=== PATIENT | female | born 1995 | race Caucasian/White ===

== ENCOUNTER 2017-06-12 21:47 | Emergency (ER) | payer MEDICAID ==
[~2017-06-12] VITALS: Ht 162.6 cm; Wt 75.7 kg
[~2017-06-12 21:47] MED LIST: ESCI20TA10 PO; OMEP20CA9 PO
[2017-06-12] MEDS ORDERED: SODIUM CHLORIDE 0.9% 1,000ML IVBOLUS ONE (22:30)
[2017-06-12] MEDS ORDERED: ONDANSETRON 2MG/ML, 2ML IVPush ONE (22:30)
[2017-06-12] MEDS ORDERED: FAMOTIDINE 20 MG/2 ML IVP ONE (22:30)
[2017-06-12] MEDS ORDERED: SODIUM CHLORIDE FLUSH 10ML SYR IVF ONE (22:30)
[2017-06-12] MEDS ORDERED: MAALOX/HYOSCYAMINE/LIDOCAINE 45 ML BTL PO ONE (22:30)
[2017-06-12 22:44] LABS: HEMATOCRIT 45.1 % (34.6-47.8); HEMOGLOBIN 15.3 g/dL (11.7-16.4); WHITE BLOOD COUNT 10.7 x10^3/uL (4.5-13.2)
[2017-06-12] MEDS ORDERED: ONDANSETRON 2MG/ML, 2ML ONE (22:48)
[2017-06-12] MEDS ORDERED: FAMOTIDINE 20 MG/2 ML ONE (22:48)
[2017-06-12] MEDS ORDERED: MAALOX/HYOSCYAMINE/LIDOCAINE 45 ML BTL ONE (22:48)
[2017-06-12 22:56] LABS: ASPARTATE AMINO TRANSFERASE 11 U/L (15-37); BLOOD UREA NITROGEN 10 mg/dL (7-18)
[2017-06-12] MEDS ORDERED: ETHO250C PO (22:59)
[2017-06-12] MEDS ORDERED: OMEP10CA4 PO (23:00)
[2017-06-13 00:49] VITALS: BP 116/66
== END 2017-06-13 00:51 | disposition home or self-care (01) ==
LOC: ED 23:59
DX: N30.91 Cystitis, unspecified with hematuria (principal); K59.00 Constipation, unspecified; R11.2 Nausea with vomiting, unspecified
CPT/HCPCS: 36415; 74020; 80053; 81001; 83690; 84703; 85025; 87086; 96361; 96374; 96375; 99285; J2405; J7030; S0028

== ENCOUNTER 2018-09-29 09:47 | Emergency (ER) | payer SELFPAY ==
[~2018-09-29] VITALS: Ht 152.4 cm; Wt 74.8 kg
[~2018-09-29 09:47] MED LIST changes: +ETHO250C PO; +OMEP10CA4 PO
[2018-09-29] MEDS ORDERED: ONDANSETRON ODT 4 MG ONE (10:43)
--- NOTE | 2018-09-29 10:48 | NUR ---
PT RESTING WITH MOTHER AT THE THESE COMPLAINTS ARE MOST OFTEN A DAILY OCCURRANCE PER THE MOTHER AND IS MORE ANXIOUS THAN NORMAL PT HAS A HX OF ANXIETY AND AUTISM WITH SEIZURES AND HAS BEEN OFF MEDS FOR UNKNOWN AMOUNT OF TIME
[2018-09-29] MEDS ORDERED: ONDANSETRON ODT 4 MG PO ONE (11:00)
[2018-09-29 11:37] LABS: BASOPHILS # (AUTO) 0.03 x10^3/uL (0-0.1); BASOPHILS % (AUTO) 0 % (0-1); EOSINOPHILS # (AUTO) 0.03 x10^3/uL (0-0.4); EOSINOPHILS % (AUTO) 0 % (1-7); LYMPHOCYTES # (AUTO) 1.49 x10^3/uL (1-3.4); LYMPHOCYTES % (AUTO) 16 % (22-44); MD NO; MEAN CORPUSCULAR HEMOGLOBIN 29.2 pg (27.0-34.8); MEAN CORPUSCULAR HGB CONC 33.5 g/dL (32.4-35.8); MEAN CORPUSCULAR VOLUME 87.3 fL (80-100); MEAN PLATELET VOLUME 7.7 fL (7.4-10.4); MONOCYTES # (AUTO) 0.44 x10^3/uL (0.2-0.8); MONOCYTES % (AUTO) 5 % (2-9); NEUTROPHILS # (AUTO) 7.58 x10^3/uL (1.8-6.8); NEUTROPHILS % (AUTO) 79 % (42-75); PLATELET COUNT 343 x10^3/uL (130-400); RED BLOOD COUNT 4.89 x10^6/uL (3.82-5.3); RED CELL DISTRIBUTION WIDTH 13.9 % (9.6-15.2)
[2018-09-29 11:45] LABS: ANION GAP 7 mmol/L (5-15); CHLORIDE 111 mmol/L (98-107); CREATININE 0.68 mg/dL (0.55-1.02)
[2018-09-29 11:46] LABS: ALANINE AMINOTRANSFERASE 29 U/L (12-78); ALBUMIN 3.8 g/dL (3.4-5.0)
[2018-09-29 11:48] LABS: ALKALINE PHOSPHATASE 106 U/L (45-117); BILIRUBIN,TOTAL 0.7 mg/dL (0.2-1.0); TOTAL PROTEIN 7.6 g/dL (6.4-8.2)
[2018-09-29 12:20] VITALS: BP 94/59
== END 2018-09-29 13:13 | disposition home or self-care (01) ==
LOC: ED 10:51
DX: R11.2 Nausea with vomiting, unspecified (principal); R19.7 Diarrhea, unspecified; R53.1 Weakness; F32.9 Major depressive disorder, single episode, unspecified; Z87.440 Personal history of urinary (tract) infections
CPT/HCPCS: 36415; 80053; 85025; 99283; Q0162

== ENCOUNTER 2019-11-25 13:15 | Emergency (ER) | payer MEDICARE ==
[~2019-11-25] VITALS: Ht 157.5 cm; Wt 75.8 kg
[~2019-11-25 13:15] MED LIST changes: -OMEP10CA4 PO; +OMEP10CA5 PO
[2019-11-25 13:20] VITALS: BP 115/64
--- NOTE | 2019-11-25 13:24 | NUR ---
EKG performed in triage
== END 2019-11-25 14:58 | disposition home or self-care (01) ==
LOC: ED 14:30
DX: S46.911A Strain of unspecified muscle, fascia and tendon at shoulder and upper arm level, right arm, initial encounter (principal); G40.909 Epilepsy, unspecified, not intractable, without status epilepticus; X58.XXXA Exposure to other specified factors, initial encounter; Y93.89 Activity, other specified; Y92.89 Other specified places as the place of occurrence of the external cause; Y99.8 Other external cause status
CPT/HCPCS: 72050; 93005; 99284

== ENCOUNTER 2020-07-29 18:08 | Emergency (ER) | payer MEDICARE ==
[~2020-07-29] VITALS: Ht 160 cm; Wt 75.1 kg
[2020-07-29 18:12] VITALS: BP 124/82
[2020-07-29] MEDS ORDERED: LIDOCAINE-MPF 1%, 5ML INFIL ONE (18:30)
[2020-07-29] MEDS ORDERED: DIPH,PERTUSS(ACELL),TET VAC/PF 0.5 ML IM-VACC ONE (18:30)
--- NOTE | 2020-07-29 19:22 | NUR ---
PT NOT IN LOBBY.
--- NOTE | 2020-07-29 19:35 | NUR ---
CALLED FOR PT. PT NOT IN LOBBY
--- NOTE | 2020-07-29 19:56 | NUR ---
NOT IN LOBBY
== END 2020-07-29 19:57 | disposition left against medical advice (07) ==
LOC: ED 19:00
DX: S61.211A Laceration without foreign body of left index finger without damage to nail, initial encounter (principal); W26.0XXA Contact with knife, initial encounter; Y93.89 Activity, other specified; Y92.89 Other specified places as the place of occurrence of the external cause; Y99.8 Other external cause status
CPT/HCPCS: 99281